=== PATIENT | female | born 1945 | race Caucasian/White ===

== ENCOUNTER → 2016-05-09 | Outpatient (CLI) | payer MEDICARE, BC | END | disposition disaster alternative care site (69) | LOC: GRAD 10:45 | DX: C18.9 Malignant neoplasm of colon, unspecified (principal); G47.19 Other hypersomnia; G47.33 Obstructive sleep apnea (adult) (pediatric) | CPT/HCPCS: Q9967 ==

== ENCOUNTER → 2016-11-11 | Outpatient (CLI) | payer MEDICARE, BC | END | disposition disaster alternative care site (69) | LOC: GRAD 08:58 | DX: C18.6 Malignant neoplasm of descending colon (principal); G47.19 Other hypersomnia; G47.33 Obstructive sleep apnea (adult) (pediatric) ==